=== PATIENT | female | born 1985 | race Caucasian/White ===

== ENCOUNTER 2021-02-25 08:00 | Day surgery (SDC) | payer BC ==
[~2021-02-25] VITALS: Ht 167.6 cm; Wt 85.3 kg
[~2021-02-25 08:00] MED LIST: FERR-46 PO
[2021-02-25 11:57] VITALS: BP 126/86
[2021-02-25] MEDS ORDERED: LACTATED RINGERS 1,000 ML IV SCH (12:00)
[2021-02-25] MEDS ORDERED: CHLORHEXIDINE 15 ML UDC PO ONE (12:00)
[2021-02-25 12:24] LABS: HCG UR SG 1.023 (1.003-1.030)
[2021-02-25] MEDS ORDERED: HYDROmorphone 1 MG/ML, 1ML INJ IVPush PRN (12:30)
[2021-02-25] MEDS ORDERED: LABETALOL 5MG/ML, 20ML IV PRN (12:30)
[2021-02-25] MEDS ORDERED: DIPHENHYDRAMINE 50 MG/ML, 1ML IVPush PRN (12:30)
[2021-02-25] MEDS ORDERED: OXYcodone 5 MG/5 ML ORAL.SOL UDC PO PRN (12:30)
[2021-02-25] MEDS ORDERED: PROMETHAZINE 25 MG/ML, 1ML IVPush PRN (12:30)
[2021-02-25] MEDS ORDERED: HALOPERIDOL 5 MG/ML IV PRN (12:30)
[2021-02-25] MEDS ORDERED: hydrALAzine 20 MG/ML, 1ML IV PRN (12:30)
[2021-02-25] MEDS ORDERED: MEPERIDINE/PF 25MG/0.5ML IVPush PRN (12:30)
[2021-02-25] MEDS ORDERED: ACETAMINOPHEN 325 MG TABLET PO PRN (12:30)
[2021-02-25] MEDS ORDERED: FENTANYL PF 100 MCG/2ML IV PRN (12:30)
[2021-02-25] MEDS ORDERED: FENTANYL PF 250 MCG/5ML ONE (13:02)
[2021-02-25] MEDS ORDERED: MIDAZOLAM 1 MG/ML, 2ML ONE (13:02)
[2021-02-25] MEDS ORDERED: FLUORESCEIN SODIUM 500 MG/5 ML ONE (13:18)
[2021-02-25] MEDS ORDERED: BUPIVACAINE 0.25% ONE (13:18)
[2021-02-25] MEDS ORDERED: HYDROmorphone 1 MG/ML, 1ML INJ ONE ×2 (15:08→15:50)
[2021-02-25] MEDS ORDERED: GLYCOPYRROLATE 0.2MG/1ML, 5ML ONE (15:41)
[2021-02-25] MEDS ORDERED: ROCURONIUM 10MG/ML,5ML ONE (15:41)
[2021-02-25] MEDS ORDERED: PROPOFOL 10 MG/ML, 20ML ONE (15:41)
[2021-02-25] MEDS ORDERED: SUCCINYLCHOLINE 20 MG/ML, 10ML ONE (15:41)
[2021-02-25] MEDS ORDERED: DEXAMETHASONE 4 MG/ML, 1ML ONE (15:41)
[2021-02-25] MEDS ORDERED: ONDANSETRON 2MG/ML, 2ML ONE (15:41)
[2021-02-25] MEDS ORDERED: NEOSTIGMINE 1 MG/ML, 10ML ONE (15:41)
[2021-02-25] MEDS ORDERED: CEFAZOLIN 1,000 MG ONE (15:41)
[2021-02-25] MEDS ORDERED: KETOROLAC 30 MG/1 ML ONE (16:18)
[2021-02-25] MEDS ORDERED: IBUP-1223 PO (17:37)
[2021-02-25] MEDS ORDERED: DOCU-131 PO (17:37)
[2021-02-25] MEDS ORDERED: OXYC1TAB14 PO (17:37)
[2021-02-25] MEDS ORDERED: PROMETHAZINE 25 MG/ML, 1ML ONE (17:41)
== END 2021-02-25 21:15 | disposition home or self-care (01) ==
LOC: OUT 08:00
PROVIDERS: ATTEND Obstetrics & Gynecology
DX: N93.8 Other specified abnormal uterine and vaginal bleeding (principal); N99.71 Accidental puncture and laceration of a genitourinary system organ or structure during a genitourinary system procedure; N94.6 Dysmenorrhea, unspecified; D25.1 Intramural leiomyoma of uterus; D25.2 Subserosal leiomyoma of uterus; N80.0 Endometriosis of uterus; N88.8 Other specified noninflammatory disorders of cervix uteri; Z20.822 Contact with and (suspected) exposure to COVID-19; Z98.51 Tubal ligation status
CPT/HCPCS: 58554; 81025; 88307; J0690; J1100; J1170; J1885; J2250; J2405; J2550; J2704; J2710; J3010; J7120; S2900; U0003; U0005; J0330